=== PATIENT | female | born 1965 | race Caucasian/White ===

== ENCOUNTER 2023-08-07 06:47 | Outpatient (CLI) | payer MEDICARE, SELFPAY ==
--- NOTE | 2023-08-07 07:12 | CT_ITS ---
WS: [id number] LDCT LUNG CANCER SCREENING TECHNIQUE: Noncontrast CT of the chest with coronal and sagittal reformatted images. CLINICAL INFORMATION: NICOTINE DEPENDENCE, CIGARETTES COMPARISON: None. DLP: 63.71 mGy.cm DIvol: Mean CTDIvol: 1.30 (mGy) All CT scans at [facility] use at least one of these dose optimization techniques: automat ed exposure control; mA and/or kV adjustment per patient size (includes targeted exams where dose is matched to clinical indication); or iterative reconstruction. FINDINGS: Mild chronic emphysematous changes. Fibrosis in the lung apices. No suspicious pulmonary pa renchymal abnormalities Aortic calcification. Coronary calcification. No mediastinal or hilar lymphadenopathy. Calcified RIGH T hilar nodes. No axillary lymphadenopathy. Adrenal glands are normal. Incidental hepatic cysts the largest in the LEFT hepatic lobe measuring 2. 4 x 1.6 cm. Normal GE junction. Mild thoracic curve. Mild thoracic kyphosis. IMPRESSION: CT/CT lung screening [id number] LUNG-RADS: 1-Negative FOLLOW UP: 12 Month: Continue annual screening with LDCT
--- NOTE | 2023-08-07 07:21 | XR_ITS ---
WS: [id number] EXAMINATION: XR foot LT min 3V* [id number] REASON FOR EXAM: PAIN IN LEFT FOOT COMPARISON: None available. ORDER DATE: 08/07/2023 7:31 AM TECHNIQUE: 3 views of the left foot were obtained. X-RAY FINDINGS: There there is a nondisplaced subacute fracture with some developing callus at the base of the second metatarsal. No focal abnormal soft tissue swelling. Joint spaces are preserved. IMPRESSION: Subacute healing fracture at the second metatarsal
== END 2023-08-07 06:48 | disposition home or self-care (01) ==
LOC: RAD 06:53
PROVIDERS: PCP Family Medicine; Visit Provider Family Medicine
DX: Z12.2 Encounter for screening for malignant neoplasm of respiratory organs (principal); F17.210 Nicotine dependence, cigarettes, uncomplicated; M79.672 Pain in left foot
CPT/HCPCS: 71271; 73630

== ENCOUNTER 2023-08-19 08:28 | Outpatient (CLI) | payer MEDICARE, SELFPAY ==
--- NOTE | 2023-08-19 08:49 | MM_ITS ---
WS: [id number] Bilateral screening 3D tomosynthesis digital mammogram, 08/19/2023 Clinical Data: SCREENING Comparison: None. Findings: The breast parenchymal pattern shows fibroglandular tissue. No spiculated masses or clustered calcifi cations are seen. There are no secondary signs of carcinoma. There are benign calcifications in both breasts. Impression: 1. Negative bilateral mammogram with no prior exam for review. 2. Recommend annual screening mammograms. MM/[place] [id number] BIRADS: 1-Negative FOLLOW UP: 1 Year Follow-up The [employer] apparel stock checker was used.
== END 2023-08-19 08:29 | disposition home or self-care (01) ==
LOC: RAD 08:29
PROVIDERS: PCP Family Medicine; Visit Provider Family Medicine
DX: S92.325A Nondisplaced fracture of second metatarsal bone, left foot, initial encounter for closed fracture (principal); Z12.31 Encounter for screening mammogram for malignant neoplasm of breast; X58.XXXA Exposure to other specified factors, initial encounter; M21.612 Bunion of left foot; G35 Multiple sclerosis; M21.372 Foot drop, left foot; R26.9 Unspecified abnormalities of gait and mobility; M20.42 Other hammer toe(s) (acquired), left foot
CPT/HCPCS: 73630; 77063; 77067; 99204

== ENCOUNTER → 2023-12-08 07:04 | Outpatient (BNVA) | payer MEDICARE, SELFPAY | PROVIDERS: PCP Family Medicine; Visit Provider Podiatrist Foot & Ankle Surgery | DX: M20.42 Other hammer toe(s) (acquired), left foot (principal); S92.325A Nondisplaced fracture of second metatarsal bone, left foot, initial encounter for closed fracture; M21.612 Bunion of left foot; G35 Multiple sclerosis; M21.372 Foot drop, left foot; R26.9 Unspecified abnormalities of gait and mobility; X58.XXXA Exposure to other specified factors, initial encounter | CPT/HCPCS: 99213 ==